=== PATIENT | female | born 1965 | race Caucasian/White ===

== ENCOUNTER → 2017-08-25 | Day surgery (SDC) | payer BC ==
--- NOTE | 2017-08-26 14:07 | PATH ---
Surgical Pathology Report Patient Name: VISHAL RESTREPO [facility]. Rec. #: [id number] /Age/Gender: 1965 (Age: 52) / F Account: [id number] Location: RADIOLOGY [facility] Taken: 08/25/2017 Received: 08/25/2017 Reported: 08/26/2017 Physicians: Nelly Richards M.D. Specimen(s) Received BREAST CORE BIOPSY AT 2:00 O'CLOCK Clinical History Nonpalpable lesion Ultrasound findings: Probably benign Final Diagnosis BREAST, RIGHT, 2:00, ULTRASOUND GUIDED CORE BIOPSY: FIBROADENOMA. Electronically Signed Becca Ayon M.D. Gross Description Received in formalin, labeled "right 2:00," are 6 ward-yellow, cylindrical portions of fibroadipose tissue ranging from 0.3-0.9 cm. in length and averaging 0.1 cm. in diameter. The specimen is submitted in toto in one cassette. Time to formalin fixation: Less than one minute Total formalin fixation time: Approximately 9 hours. 08/25/201708/25/2017
== END | disposition home or self-care (01) ==
LOC: JRADUS-SUR 08:03
PROVIDERS: ATTEND Obstetrics & Gynecology
PROC: 0HBT3ZX Excision of Right Breast, Percutaneous Approach, Diagnostic (ICD-10-PCS; principal; 2017-08-25)
DX: N63.0 Unspecified lump in unspecified breast (principal); D24.1 Benign neoplasm of right breast
CPT/HCPCS: 19083; 87899; 88305-TC; A4648

== ENCOUNTER 2022-01-20 11:25 | Emergency (ER) | payer BC ==
[2022-01-20 11:33] VITALS: BP 114/69; PULSE 86; TEMP 98.6; BMI 26.0
[2022-01-20 12:25] LABS: EPITHELIAL CELLS MODERATE /hpf
[2022-01-20 12:33] LABS: ALBUMIN 3.8 g/dl (3.4-5.0); BILIRUBIN,TOTAL 0.6 mg/dl (0.2-1); CALCIUM 9.4 mg/dl (8.5-10); CREATININE 0.7 mg/dl (0.55-1.3); TOT PROT 6.8 g/dl (6.4-8.2)
[2022-01-20 12:50] LABS: BASO % 0.9 % (0-2.0); EOS % 6.4 % (0-4.5); HEMATOCRIT 40.9 % (32.4-45.2); HEMOGLOBIN 13.7 GM/dL (10.7-15.3); MCHC 33.6 g/dl (32.0-36.0); MEAN CELL VOLUME 86.3 fl (80-96); MEAN PLT VOLUME 7.7 fl (7.5-11.1); MONO % 7.1 % (3.8-10.2); NEUT % 53.6 % (42.8-82.8); PLATELET COUNT 358 10^3/uL (134-434); RBC 4.73 M/mm3 (3.60-5.2); RDW 14.1 % (11.6-15.6)
[2022-01-20] MEDS ORDERED: ACETAMINOPHEN 1000 MG/100 ML BAG IVPB ONE (13:04)
[2022-01-20] MEDS ORDERED: SODIUM CHLORIDE 0.9% 500 ML INFUS.BAG IV ONE (13:04)
[2022-01-20] MEDS ORDERED: ACETAMINOPHEN INJECTION 100 ML IVPB ONE (13:08)
== END 2022-01-20 14:40 | disposition home or self-care (01) ==
LOC: FER 11:25
PROC: 3E033GC Introduction of Other Therapeutic Substance into Peripheral Vein, Percutaneous Approach (ICD-10-PCS; principal; 2022-01-20)
DX: R10.32 Left lower quadrant pain (principal)
CPT/HCPCS: 36415; 74176-TC; 80053; 81003; 81015; 85025; 99285-25

== ENCOUNTER 2022-03-31 13:27 | Emergency (ER) | payer OTHER, BC ==
[2022-03-31 13:46] VITALS: BP 125/61; PULSE 78; TEMP 98; BMI 27.3
[2022-03-31] MEDS ORDERED: KETOROLAC TROMETHAMINE 30 MG/1 ML VIAL IM ONE (14:51)
[2022-03-31] MEDS ORDERED: diazePAM 5 MG TABLET PO ONE (14:51)
[2022-03-31] MEDS ORDERED: KETOROLAC TROMETHAMINE 30 MG/1 ML VIAL ONE (14:53)
[2022-03-31] MEDS ORDERED: diazePAM 5 MG TABLET ONE (14:53)
== END 2022-03-31 18:36 | disposition left against medical advice (07) ==
LOC: JER 13:27 → JERFT 13:27
PROC: 3E0233Z Introduction of Anti-inflammatory into Muscle, Percutaneous Approach (ICD-10-PCS; principal; 2022-03-31)
DX: M54.2 Cervicalgia (principal); V89.2XXA Person injured in unspecified motor-vehicle accident, traffic, initial encounter; Y92.9 Unspecified place or not applicable
CPT/HCPCS: 70450-TC; 72125-TC; 99285-25